=== PATIENT | female | born 1965 | race Caucasian/White ===

== ENCOUNTER 2016-09-20 07:49 | Emergency (ER) | payer BC ==
[~2016-09-20] VITALS: Ht 167.6 cm; Wt 90.7 kg
== END 2016-09-20 08:59 | disposition home or self-care (01) ==
LOC: CED 07:49 → CFTX 07:49 → CED 08:25 → CFTX 08:25
DX: T65.891A Toxic effect of other specified substances, accidental (unintentional), initial encounter (principal); H10.212 Acute toxic conjunctivitis, left eye; S05.02XA Injury of conjunctiva and corneal abrasion without foreign body, left eye, initial encounter; E11.9 Type 2 diabetes mellitus without complications; Z79.4 Long term (current) use of insulin; I10 Essential (primary) hypertension; Z23 Encounter for immunization; Z88.1 Allergy status to other antibiotic agents; Z88.8 Allergy status to other drugs, medicaments and biological substances
CPT/HCPCS: 90471; 90715; 99283